=== PATIENT | male | born 1945 | race Hispanic/Latino ===

== ENCOUNTER 2018-01-03 20:18 | Inpatient (IN) | payer MEDICARE ==
[2018-01-03 20:18] VITALS: BMI 33.3
--- NOTE | 2018-01-03 21:10 | ED PDOC ---
Arrival/HPI - General Chief Complaint: Flu-like Symptoms Time Seen by Provider: 01/03/18 20:29 Historian: Patient, Family - History of Present Illness Narrative History of Present Illness (Text): 01/03/18 20:35 Meño Arriaza is a 72 year old male, whose past medical history includes diabetes, who presents to the Emergency department complaining of flu-like symptoms for the past few days. Patient also presented for left-sided weakness/ lower extremity weakness. Patient denies any chest pain, shortness of breath, nausea, vomiting, diarrhea, urinary symptoms, back pain, neck pain, headache, or any other complaints. Symptom Onset: Gradual Symptom Course: Unchanged Activities at Onset: Light Context: Home Past Medical History - Provider Review Nursing Documentation Reviewed: Yes - Infectious Disease Hx of Infectious Diseases: None - Cardiac Hx Pacemaker: No - Neurological Hx Paralysis: No - Endocrine/Metabolic Hx Diabetes Mellitus Type 2: Yes - Hematological/Oncological Hx Blood Transfusions: No - Musculoskeletal/Rheumatological Hx Musculoskeletal Disorders: No - Genitourinary/Gynecological Hx Prostate Problems: Yes - Psychiatric Hx Substance Use: No - Surgical History Other/Comment: right knee sx - Anesthesia Hx Anesthesia: Yes Hx Anesthesia Reactions: No Hx Malignant Hyperthermia: No Family/Social History - Physician Review Nursing Documentation Reviewed: Yes Family/Social History: Unknown Family HX Smoking Status: Never Smoked Hx Alcohol Use: Yes (MILD USE) Hx Substance Use: No Allergies/Home Meds Allergies/Adverse Reactions: Allergies No Known Allergies Allergy (Verified 01/03/18 20:32) Home Medications: Home Meds Medication Instructions Recorded Confirmed Finasteride [Proscar] 5 mg PO DAILY 07/23/17 01/03/18 Glipizide [Glucotrol] 10 mg PO BID 07/23/17 01/03/18 Losartan [Cozaar] 50 mg PO DAILY 07/23/17 01/03/18 MetFORMIN [glucOPHAGE] 1,000 mg PO BID 07/23/17 01/03/18 Pravastatin Sodium [Pravachol] 20 mg PO DAILY 07/23/17 01/03/18 Amoxicillin/Clavulanate [Augmentin 1 tab PO BID 01/05/18 01/05/18 875 MG-125 MG] Review of Systems - Physician Review All systems were reviewed & negative as marked: Yes - Review of Systems Constitutional: Normal. absent: Fevers Eyes: Normal ENT: Other (+flu-like symptoms) Cardiovascular: Normal. absent: Chest Pain Gastrointestinal: Normal. absent: Abdominal Pain, Diarrhea, Nausea, Vomiting Genitourinary Male: Normal. absent: Dysuria, Frequency, Hematuria, Urinary Output Changes Musculoskeletal: Normal. absent: Back Pain, Neck Pain Skin: Normal. absent: Rash Neurological: Other (+left-sided weakness). absent: Dizziness Endocrine: Normal Hemo/Lymphatic: Normal Psychiatric: Normal Physical Exam Vital Signs Reviewed: Yes Vital Signs Temp Pulse Resp BP Pulse Ox 01/04/18 04:07 94 H 17 108/64 98 01/04/18 02:44 92 H 17 112/81 96 01/04/18 01:44 92 H 17 108/60 98 01/04/18 00:44 92 H 17 115/61 98 01/03/18 20:23 100.3 F H 118 H 20 118/73 98 Temperature: Febrile Blood Pressure: Normal Pulse: Regular Respiratory Rate: Normal Appearance: Positive for: Well-Appearing, Non-Toxic, Comfortable Pain Distress: None Mental Status: Positive for: Alert and Oriented X 3 - Systems Exam Head: Present: Atraumatic, Normocephalic Pupils: Present: PERRL Extroacular Muscles: Present: EOMI Conjunctiva: Present: Normal Mouth: Present: Moist Mucous Membranes Neck: Present: Normal Range of Motion Respiratory/Chest: Present: Clear to Auscultation, Good Air Exchange. No: Respiratory Distress, Accessory Muscle Use Cardiovascular: Present: Regular Rate and Rhythm, Normal S1, S2. No: Murmurs Abdomen: Present: Normal Bowel Sounds. No: Tenderness, Distention, Peritoneal Signs Back: Present: Normal Inspection. No: CVA Tenderness, Midline Tenderness, Paraspinal Tenderness Upper Extremity: Present: Normal Inspection, NORMAL PULSES, Neurovascularly Intact, Capillary Refill < 2s. No: Cyanosis, Edema, Tenderness, Swelling, Erythema, Deformity Lower Extremity: Present: Other (4/5 strength in left leg). No: Edema, Tenderness, Swelling, Erythema Neurological: Present: GCS=15, CN II-XII Intact, Speech Normal Skin: Present: Warm, Dry, Normal Color. No: Rashes Psychiatric: Present: Alert, Oriented x 3, Normal Insight, Normal Concentration Medical Decision Making ED Course and Treatment: 01/03/18 20:35 Impression: 72 year old male complaining of flu-like symptoms and left-sided weakness. Plan: -- CT Head w/o contrast -- EKG -- Chest X-ray -- Labs, troponin -- Rapid influenza -- Urinalysis -- Reassess and disposition Progress Notes: Reviewed EKG, sinus tachycardia at [address] LAD. Non-specific ST/T wave changes. 01/03/18 21:52 Chest X-ray reviewed, shows no acute processes. 01/03/18 23:01 CT Head shows: Brain: Mild atrophy. No intracranial hemorrhage. No mass. Minimal decreased attenuation within periventricular white matter. No definite edema. Ventricles: Mildly dilated out of proportion to sulci. Bones/joints: No acute fracture. Soft tissues: Unremarkable. Vasculature: Atherosclerotic disease of intracranial arteries. Sinuses: Near complete opacification of RIGHT maxillary sinus. Moderate mucosal/ minimal fluid thickening of LEFT maxillary sinus. Moderate mucosal thickening of ethmoid sinuses. Mild-tomoderate mucosal thickening +/- fluid of frontal, sphenoid sinuses. Mastoid air cells: No mastoid effusion. Orbits: Unremarkable as visualized. IMPRESSION: 1. Nonspecific white matter changes. Acute infarction may be CT occult within first 24 hours. If a focal deficit persists, consider followup CT or MRI for further evaluation. 2. Mild hydrocephalus vs central atrophy. Compare with prior examinations if available. 3. Sinus disease. 4. Incidental/non-acute findings are described above. 01/04/18 00:[address] Eduardo, covering for Dr. Mckeon, who is aware and agrees with plan. Pt will be admitted to remote telemetry for TIA. - Lab Interpretations Lab Results: 01/03/18 21:11 01/03/18 21:11 Lab Results 01/04/18 00:30: Urine Color Yellow, Urine Appearance Sl cloudy, Urine pH 6.0, Ur Specific [place] >= 1.030, Urine Protein 100 H, Urine Glucose (UA) Negative, Urine Ketones 15 H, Urine Blood Trace-intact H, Urine Nitrate Negative, Urine Bilirubin Small H, Urine Urobilinogen 1.0 H, Ur Leukocyte Esterase Negative, Urine RBC 0 - 2, Urine WBC 0 - 2, Ur Epithelial Cells 1 - 3, Urine Bacteria Few 01/03/18 21:11: Influenza Typ A,B (EIA) Negative for flu a/b 01/03/18 21:11: Sodium 135, Potassium 4.2, Chloride 97 L, Carbon Dioxide 24, Anion Gap 18, BUN 22 H, Creatinine 1.0, Est GFR ( Amer) > 60, Est GFR ( Non-Af Amer) > 60, Random Glucose 263 H, Calcium 9.6, Total Bilirubin 1.2, AST 29, ALT 35, Alkaline Phosphatase 51, Troponin I 0.02, Total Protein 7.6, Albumin 4.1, Globulin 3.5, Albumin/Globulin Ratio 1.2 01/03/18 21:11: WBC 5.6, RBC 5.46, Hgb 15.2, Hct 44.6, MCV 81.7, MCH 27.8, MCHC 34.1, RDW 13.9, Plt Count 126, MPV 10.3, Gran % 74.2 H, Lymph % (Auto) 9.4 L, Haines % (Auto) 16.2 H, Eos % (Auto) 0.0 L, Baso % (Auto) 0.2, Gran # 4.18, Lymph # (Auto) 0.5 L, Haines # (Auto) 0.9 H, Eos # (Auto) 0.0, Baso # (Auto) 0.01 I have reviewed the lab results: Yes - RAD Interpretation Radiology Orders: 01/03/18 20:38 CHEST PORTABLE [RAD] Stat 01/03/18 20:48 HEAD W/O CONTRAST [CT] Stat Bottom Scrubber: ED Physician, Radiologist - EKG Interpretation Interpreted by ED Physician: Yes Type: 12 lead EKG - Medication Orders Current Medication Orders: Acetaminophen (Tylenol 325mg Tab) 650 mg PO Q4H PRN PRN Reason: Fever >100.5 F Amoxicillin/Clavulanate Potassium (Augmentin 500 Mg-125 Mg Tab) 1 tab PO Q8 MARG[facility]ET PRN Reason: Protocol Last Admin: 01/05/18 13:28 Dose: 1 tab Aspirin (Ecotrin) 81 mg PO DAILY [facility] Last Admin: 01/05/18 13:30 Dose: 81 mg Atorvastatin Calcium (Lipitor) 10 mg PO DIN [facility] Last Admin: 01/04/18 17:36 Dose: 10 mg Finasteride (Proscar) 5 mg PO DAILY [facility] Last Admin: 01/05/18 10:30 Dose: 5 mg Insulin Human Regular (Humulin R Low) 0 units SC ACHS [facility] PRN Reason: Protocol Last Admin: 01/05/18 13:33 Dose: Not Given Non-Admin Reason: Patient Refused Losartan Potassium (Cozaar) 50 mg PO DAILY [facility] Last Admin: 01/05/18 10:30 Dose: 50 mg MAR Pulse and Blood Pressure Document 01/05/18 10:30 CD (Rec: 01/05/18 10:31 CD [id number]) Pulse Pulse Rate (60-90) 71 Blood Pressure Blood Pressure (100/60-150/90) 131/71 Metformin HCl (Glucophage) 1,000 mg PO BID [facility] Last Admin: 01/05/18 10:30 Dose: 1,000 mg Discontinued Medications Aspirin (Ecotrin) 325 mg PO STAT STA Stop: 01/04/18 00:42 Last Admin: 01/04/18 01:15 Dose: 325 mg Sodium Chloride (Sodium Chloride 0.9%) 1,000 mls @ 100 mls/hr IV .Q10H STA Stop: 01/04/18 11:01 Last Admin: 01/04/18 01:15 Dose: 100 mls/hr eMAR Start Stop Document 01/04/18 01:15 IT (Rec: 01/04/18 01:15 IT [id number]) Intravenous Solution Start Date 01/04/18 Start Time 01:15 Oseltamivir Phosphate (Tamiflu Cap) 75 mg PO STAT STA PRN Reason: Protocol Stop: 01/04/18 00:32 Last Admin: 01/04/18 01:15 Dose: 75 mg NIHSS Scale (Leslie) Time Performed: 20:35 - How Severe is the Stoke Baseline Level of Consciousness: 0=Alert LOC to Questions: 0=Both comments correct LOC to commands: 0=Obeys both correctly Best Gaze: 0=Normal Visual: 0=No visual loss Facial: 0=Normal Motor Arm - Left: 0=No drift Motor Arm - Right: 0=No drift Motor Leg - Left: 1=Drift before 5 sec Motor Leg - Right: 0=No drift Limb Ataxia: 0=Absent Sensory: 0=Normal Best Language: 0=No aphasia Dysarthia: 0=Normal articulation Extinction & Inattention (Neglect): 0=Normal, no object Score: 1 Risk Level: Minor Stroke Risk rTPA Inclusion/Exclusion - Refusal of Treatment Patient Refused Treatment: No - Inclusion Criteria for Altepase Patient is 18 years or Older: Yes The Clinical Diagnosis of Ischemic Stroke That is Causing a Potentially Disabling Neurological Deficit: No Time of Onset is Well Established to be Less Than 270 Minute Before Treatment Would Begin: No Risk/Benefit Discussed With Patient/Family Member Present: Yes - Exclusion Criteria for Altepase Uncontrolled Hypertension at Time of Treatment (Systolic BP above 185 or Diastolic BP above 110 mmHg): No Active Internal Bleeding: No Known Bleeding Diathesis Including but Not Limited to: Platelets Below 100,000/ mm,PTT Above 40 sec After Heparin Use, Current Use of Oral Anitcoagulant With INR Greater Than 1.7 or PT Greater Than 15 secs: No Evidence of an Intracranial Hemorrhage: No Evidence of Major Acute Infarct With Signs Greater Than 1/3 MCA Territory: No Suspicion of Subarachnoid Hemorrhage on Pretreatment Evaluation Even if CT Head Negative For Hemorrhage: No - Scribe Statement The provider has reviewed the documentation as recorded by the Felicianoibjosé Rodgers All medical record entries made by the Felicianoibjosé were at my direction and personally dictated by me. I have reviewed the chart and agree that the record accurately reflects my personal performance of the history, physical exam, medical decision making, and the department course for this patient. I have also personally directed, reviewed, and agree with the discharge instructions and disposition. Disposition/Present on Arrival - Present on Arrival Any Indicators Present on Arrival: No History of DVT/PE: No History of Uncontrolled Diabetes: Yes Urinary Catheter: No History of Decub. Ulcer: No History Surgical Site Infection Following: None - Disposition Have Diagnosis and Disposition been Completed?: Yes Diagnosis: TIA (transient ischemic attack) Disposition: HOSPITALIZED Disposition Time: 00:00 Patient Problems: Current Active Problems Problem Status Onset TIA (transient ischemic attack) Acute Condition: FAIR
[2018-01-03 21:25] LABS: BASO # 0.01 K/mm3 (0.0-2.0); BASO % 0.2 % (0.0-3.0); GRAN # 4.18 (1.4-6.5); GRAN % 74.2 % (50.0-68.0); HEMOGLOBIN 15.2 g/dL (14.0-18.0); LYMPH # 0.5 (1.2-3.4); LYMPH % 9.4 % (22.0-35.0); MEAN CELL VOLUME 81.7 fl (80.0-105.0); MEAN CORPUSCULAR HEMOGLOBIN 27.8 pg (25.0-35.0); MEAN CORPUSCULAR HGB CONC 34.1 g/dl (31.0-37.0); MEAN PLATELET VOLUME 10.3 fl (7.0-11.0); MONO # 0.9 (0.1-0.6); MONO % 16.2 % (1.0-6.0); RBC 5.46 10^6/uL (3.5-6.1); RED CELL DISTRIBUTION WIDTH 13.9 % (11.5-14.5); WHITE BLOOD COUNT 5.6 10^3/ul (4.5-11.0)
[2018-01-03 21:55] LABS: ALB/GLOB RATIO 1.2 (1.1-1.8); ALBUMIN 4.1 g/dL (3.0-4.8); ALT/SGPT 35 U/L (7-56); AST/SGOT 29 U/L (17-59); BLOOD UREA NITROGEN 22 mg/dL (7-21); CALCIUM 9.6 mg/dL (8.4-10.5); GFR AFRICAN-AMERICAN > 60; GFR NON-AFRICAN AMERICAN > 60
[2018-01-03 22:06] LABS: TROPONIN I 0.02 ng/mL
--- NOTE | 2018-01-03 23:00 | CT ---
EXAM: CT Head Without Intravenous Contrast CLINICAL HISTORY: 72 years old, male; Signs and symptoms; Weakness, extremity TECHNIQUE: Axial computed tomography images of the head/brain without intravenous contrast. All CT scans at this facility use one or more dose reduction techniques, viz.: automated exposure control; ma/kV adjustment per patient size (including targeted exams where dose is matched to indication; i.e. head); or iterative reconstruction technique. Coronal and sagittal reformatted images were created and reviewed. COMPARISON: No relevant prior studies available. FINDINGS: Brain: Mild atrophy. No intracranial hemorrhage. No mass. Minimal decreased attenuation within periventricular white matter. No definite edema. Ventricles: Mildly dilated out of proportion to sulci. Bones/joints: No acute fracture. Soft tissues: Unremarkable. Vasculature: Atherosclerotic disease of intracranial arteries. Sinuses: Near complete opacification of RIGHT maxillary sinus. Moderate mucosal/minimal fluid thickening of LEFT maxillary sinus. Moderate mucosal thickening of ethmoid sinuses. [id number] mucosal thickening +/- fluid of frontal, sphenoid sinuses. Mastoid air cells: No mastoid effusion. Orbits: Unremarkable as visualized. IMPRESSION: 1. Nonspecific white matter changes. Acute infarction may be CT occult within first 24 hours. If a focal deficit persists, consider followup CT or MRI for further evaluation. 2. Mild hydrocephalus vs central atrophy. Compare with prior examinations if available. 3. Sinus disease. 4. Incidental/non-acute findings are described above.
[2018-01-04] MEDS ORDERED: Aspirin 325 mg EC Tablets PO STA (00:41)
[2018-01-04 00:51] LABS: URINE BILIRUBIN SMALL (NEGATIVE); URINE BLOOD TRACE-INTACT (NEGATIVE); URINE GLUCOSE (UA) NEGATIVE (NEGATIVE); URINE LEUKOCYTE ESTERASE NEGATIVE Leu/uL (NEGATIVE); URINE NITRATE NEGATIVE (NEGATIVE); URINE PROTEIN 100 mg/dL (<30 mg/dL)
[2018-01-04] MEDS ORDERED: Sodium Chloride 0.9% 1,000 ML IV STA (01:02)
[2018-01-04 01:10] LABS: URINE APPEARANCE SL CLOUDY (CLEAR); URINE COLOR YELLOW (YELLOW)
[2018-01-04 02:02] LABS: URINE RBC 0 - 2 /hpf (0-2)
[2018-01-04 02:03] LABS: URINE BACTERIA FEW (NEG); URINE WBC 0 - 2 /hpf (0-6)
[2018-01-04] MEDS: Insulin Reg-LOW-Coverage SC SCH ×4 (08:43→21:59)
[2018-01-04 08:48] LABS: HDL CHOLESTEROL 24 mg/dL (29-60)
--- NOTE | 2018-01-04 08:56 | RAD ---
HISTORY: weak COMPARISON: No prior. FINDINGS: LUNGS: No active pulmonary disease. PLEURA: No significant pleural effusion identified, no pneumothorax apparent. CARDIOVASCULAR: Normal. OSSEOUS STRUCTURES: No significant abnormalities. VISUALIZED UPPER ABDOMEN: Normal. OTHER FINDINGS: None. IMPRESSION: No active disease.
[2018-01-04 08:59] LABS: LDL CHOLESTEROL 72 mg/dL (0-129)
--- NOTE | 2018-01-04 11:48 | CARD ---
APPROVED REPORT EKG Measurement Heart [id number] <Conclusion> Sinus tachycardia Possible Left atrial enlargement Left axis deviation Abnormal ECG
[2018-01-04] MEDS ORDERED: Gadodiamide 287 MG/ML VIAL (15ML) IV ONE (16:31)
--- NOTE | 2018-01-04 17:14 | HP ---
HISTORY OF PRESENT ILLNESS: Mr. Arriaza is a 72-year-old male presented to the ED with progressive weakness over past few days. He was not able to get up from the sitting position. Denies any fever. No chest pain. No nausea. No vomiting. No diarrhea. He also noticed that while he is looking in the mirror, his image is tilted to the left. No seizure. No altered sensorium. He has history of diabetes mellitus, fairly controlled with current medications; also has benign prostatic hypertrophy, no active issues right now. He never smoked. PAST MEDICAL HISTORY: Diabetes mellitus type 2, BPH. PAST SURGICAL HISTORY: Right knee surgery. PERSONAL HISTORY: Never smoked. No history of alcohol abuse. SOCIAL HISTORY: Lives at home. FAMILY HISTORY: Noncontributory. ALLERGIES: NO KNOWN DRUG ALLERGIES. HOME MEDICATIONS: Proscar 5 mg daily, Glucotrol 10 mg b.i.d., Cozaar 50 mg daily, metformin 1000 mg p.o. b.i.d., Pravachol 20 mg daily. REVIEW OF SYSTEMS: As per HPI. Rest of 12-point review of systems reviewed negative. PHYSICAL EXAMINATION: GENERAL: Comfortable in bed, not in any acute distress. VITAL SIGNS: T-max is 100.3, heart rate is 118 per minute, respiratory rate 20 per minute, blood pressure 118/70, pulse ox is 98% on room air. HEENT: Normal. NECK: No lymphadenopathy. CHEST: Air entry present and equal bilaterally. No added sound. CARDIOVASCULAR: S1 and S2 normal. No murmur. No gallop. ABDOMEN: Soft, nontender. No hepatosplenomegaly. EXTREMITIES: No edema. CIVIL ENGINEERING MANAGER: Alert and oriented x3. No focal sensory motor deficit. SPINE: Nontender. SKIN: No petechiae. No rash. CAT scan of the head without contrast showed focal white matter changes, nonspecific in nature. Also had opacification of right maxillary sinus and sinus thickening. LABORATORY DATA: White count 5.6, hemoglobin 15.2, hematocrit 44.6, platelet count 126. Sodium 135, potassium 4.2, BUN 22, creatinine 1, glucose 263. UA negative. Granulocytes 74%, elevated; monocyte elevated 16.2. ASSESSMENT: 1. Transient ischemic attack. 2. Granulocytosis, monocytosis. 3. Benign prostatic hypertrophy. PLAN: He will be admitted to tele monitoring. Neurology consultation, Dr. Oliver requested. We will continue antidiabetic metformin 1000 mg p.o. b.i.d. Continue Cozaar 50 mg daily, Lipitor 10 mg daily, Proscar 5 mg daily. Carotid and vertebral Doppler ordered. MRI of the brain ordered. We will continue to follow closely. Carbohydrate consistent diet. Janneth Eduardo MD
[2018-01-04] MEDS: Amoxicillin-Clav 500-125 mg Tab PO SCH ×2 (17:36→21:59)
[2018-01-04 18:45] VITALS: RESP 20
--- NOTE | 2018-01-04 20:00 | MRI ---
EXAM: MR Head Without and With Intravenous Contrast EXAM DATE/TIME: 01/04/2018 2:10 PM CLINICAL HISTORY: 72 years old, male; Signs and symptoms; Weakness, extremity; Bilateral; Additional info: TIA TECHNIQUE: Magnetic resonance images of the head/brain without and with intravenous contrast in multiple planes. CONTRAST: 15 mL of optimark administered intravenously. COMPARISON: Prior head CT of 2018-01-03 FINDINGS: LIMITATIONS: Mild streak/motion artifact. BRAIN: Best seen on image 27 of series 5, there is a round 2 cm mass at the vertex/top of the brain on the right, which demonstrates intermediate T1 and high T2 signal. It enhances solidly postcontrast. It appears extra-axial in location. On the recent CT, it causes smooth thinning of the inner table of the skull. This could represent a small meningioma. Mild increased T2 signal in the periventricular white matter bilaterally, nonspecific in appearance, but most likely representing mild chronic small vessel ischemic changes, in a patient of this age. No significant acute abnormality identified. No evidence of restricted diffusion/acute infarct. No signal abnormality seen to suggest acute intracranial hemorrhage. No acute extra-axial fluid collections visualized. No evidence of significant mass effect within the brain. VENTRICLES: No evidence of significant hydrocephalus. BONES/JOINTS: No acute bony abnormality identified. SINUSES: Pansinus inflammatory disease. There is fluid in the sphenoid sinuses bilaterally, compatible with acute sinusitis, as well as near-complete opacification of the right maxillary and bilateral ethmoid sinuses. MASTOID AIR CELLS: Mastoid air cells appear clear. ORBITS: No acute intraorbital abnormality seen. IMPRESSION: - No evidence of acute infarct or other significant acute intracranial abnormality. - Findings which are most likely due to a small 2 cm meningioma at the vertex/top of the head on the right. - Pansinus inflammatory disease, including acute sphenoid sinusitis. - See above for remaining findings.
--- NOTE | 2018-01-05 03:22 | CON ---
DATE: HISTORY OF PRESENT ILLNESS: This is a 72-year-old male with past medical history of diabetes, who was complaining of flu-like symptoms, family at bedside, presented with left-sided weakness. No shortness of breath, no chest pain. Symptoms improved. I was called to evaluate the patient. PAST MEDICAL HISTORY: Diabetes. ALLERGIES: NO KNOWN DRUG ALLERGIES. HOME MEDICATIONS: Glucotrol, Cozaar, Glucophage, and Pravachol. PHYSICAL EXAMINATION: VITAL SIGNS: Blood pressure 118/73. HEENT: Normocephalic, atraumatic. NECK: Supple. NEUROLOGIC: Awake, oriented to self and place. Cranial nerves II through XII were tested. Pupils are reactive. EOM intact. Visual wheatley full. No facial asymmetry. Tongue midline. Motor: Moves all the extremities equally. Tone normal. Deep tendon reflexes are 1+. Both plantars are downgoing. Sensory appears intact. Cerebellar, gait deferred. IMPRESSION AND PLAN: Possibly transient ischemic attack. Symptoms improving. We will do the MRI of the head and carotid Doppler. Continue present management. We will follow up. Edwin Oliver MD
[2018-01-05] MEDS: Amoxicillin-Clav 500-125 mg Tab PO SCH ×2 (05:19→13:28)
[2018-01-05 05:49] VITALS: O2SAT 97
[2018-01-05] MEDS: Insulin Reg-LOW-Coverage SC SCH ×3 (08:48→16:40)
--- NOTE | 2018-01-05 11:37 | CP.PCM.PN ---
<GianaKandace - Last Filed: 01/05/18 11:42> Subjective - Date & Time of Evaluation Date of Evaluation: 01/05/18 Time of Evaluation: 11:32 - Subjective Subjective: Neurology PGY-[address] Oliver Pt states that leg and arm weakness has improved. He is seem OOB to chair with a friend. No acute complaints Objective - Vital Signs/Intake and Output Vital Signs (last 24 hours): Temp Pulse Resp BP Pulse Ox 98.8 F 71 20 131/71 97 01/05/18 05:48 01/05/18 10:30 01/05/18 05:48 01/05/18 10:30 01/05/18 05:48 Intake and Output: 01/05/18 01/05/18 06:59 18:59 Intake Total 420 Balance 420 - Medications Medications: Current Medications Acetaminophen (Tylenol 325mg Tab) 650 mg PO Q4H PRN PRN Reason: Fever >100.5 F Amoxicillin/Clavulanate Potassium (Augmentin 500 Mg-125 Mg Tab) 1 tab PO Q8 [facility] PRN Reason: Protocol Last Admin: 01/05/18 05:19 Dose: 1 tab Atorvastatin Calcium (Lipitor) 10 mg PO DIN [facility] Last Admin: 01/04/18 17:36 Dose: 10 mg Finasteride (Proscar) 5 mg PO DAILY [facility] Last Admin: 01/05/18 10:30 Dose: 5 mg Insulin Human Regular (Humulin R Low) 0 units SC ACHS [facility] PRN Reason: Protocol Last Admin: 01/05/18 08:48 Dose: Not Given Losartan Potassium (Cozaar) 50 mg PO DAILY [facility] Last Admin: 01/05/18 10:30 Dose: 50 mg Metformin HCl (Glucophage) 1,000 mg PO BID [facility] Last Admin: 01/05/18 10:30 Dose: 1,000 mg - Constitutional Appears: Well - Head Exam Head Exam: ATRAUMATIC, NORMAL INSPECTION, NORMOCEPHALIC - Eye Exam Eye Exam: EOMI, Normal appearance, PERRL Pupil Exam: NORMAL ACCOMODATION - ENT Exam ENT Exam: Mucous Membranes Moist - Neck Exam Additional comments: supple - Respiratory Exam Respiratory Exam: Clear to Ausculation Bilateral, NORMAL BREATHING PATTERN - Cardiovascular Exam Cardiovascular Exam: REGULAR RHYTHM, +S1, +S2. absent: Murmur - GI/Abdominal Exam GI & Abdominal Exam: Soft. absent: Tenderness - Extremities Exam Extremities Exam: absent: Calf Tenderness, Pedal Edema - Neurological Exam Neurological Exam: Alert, Awake, CN II-XII Intact, Oriented x3 Additional comments: AAOx3 CN2-12: intact. Visual wheatley full Speech: slurring has much resolved Motor: 5/5 all 4 extremities Sensory: intact DTR: 1+, plantars are downgoing - Psychiatric Exam Psychiatric exam: Normal Affect, Normal Mood - Skin Skin Exam: Dry, Warm Assessment and Plan - Assessment and Plan (Free Text) Plan: Mr Meño Arriaza, 72M, with PMHx if Diabetes, complained of flu-like symptoms and left sided weakness. Tranisent L sided weakness, possibly due to mild transient ischemic attack Incidental finding of meningioma - MRI: no acute infarct. 2cm meningioma R vertex - ___Pending__carotid doppler - asa 81, lipitor 10 - Continue PT/OT - pt is neurologically stable to discharge from hospital - follow up with neurology outpatient to monitor meningioma s/r/d/w Dr Oliver <James Oliver - Last Filed: 01/05/18 11:47> Objective - Vital Signs/Intake and Output Vital Signs (last 24 hours): Temp Pulse Resp BP Pulse Ox 98.8 F 71 20 131/71 97 01/05/18 05:48 01/05/18 10:30 01/05/18 05:48 01/05/18 10:30 01/05/18 05:48 Intake and Output: 01/05/18 01/05/18 06:59 18:59 Intake Total 420 Balance 420 - Medications Medications: Current Medications Acetaminophen (Tylenol 325mg Tab) 650 mg PO Q4H PRN PRN Reason: Fever >100.5 F Amoxicillin/Clavulanate Potassium (Augmentin 500 Mg-125 Mg Tab) 1 tab PO Q8 [facility] PRN Reason: Protocol Last Admin: 01/05/18 05:19 Dose: 1 tab Aspirin (Ecotrin) 81 mg PO DAILY [facility] Atorvastatin Calcium (Lipitor) 10 mg PO DIN [facility] Last Admin: 01/04/18 17:36 Dose: 10 mg Finasteride (Proscar) 5 mg PO DAILY [facility] Last Admin: 01/05/18 10:30 Dose: 5 mg Insulin Human Regular (Humulin R Low) 0 units SC ACHS [facility] PRN Reason: Protocol Last Admin: 01/05/18 08:48 Dose: Not Given Losartan Potassium (Cozaar) 50 mg PO DAILY [facility] Last Admin: 01/05/18 10:30 Dose: 50 mg Metformin HCl (Glucophage) 1,000 mg PO BID [facility] Last Admin: 01/05/18 10:30 Dose: 1,000 mg
[2018-01-05 12:48] VITALS: BP 135/81; TEMP 98.4
[2018-01-05] MEDS ORDERED: Influenza Vaccine 60 mcg/0.5 mL SYR (4YR UP) IM ONE (17:09)
[2018-01-05 18:21] VITALS: PULSE 87
--- NOTE | 2018-01-06 04:28 | DS ---
HISTORY OF PRESENT ILLNESS: This is a 72-year-old male who was coming to the hospital because of weakness. He says he had difficulty in ambulating. The patient was seen by Neurology. They were concerned about a TIA. The patient had a brain MRI that was done and showed no evidence of acute infarct. There are 2 small meningiomas at the vertex. The patient has no complaints of any headaches or dizziness. No nausea or vomiting. He says he is stronger, and is able to ambulate. PHYSICAL EXAMINATION: VITAL SIGNS: Temperature is 98.8, pulse of 71, blood pressure is 131/71, respiration is 20. GENERAL: The patient is lying in bed, flat, comfortable. HEENT: No oral lesion. Anicteric sclerae. Moist mucosa. NECK: No JVD, adenopathy, or thyromegaly. CARDIOVASCULAR: S1 and S2, regular. No murmurs, rubs, or gallops. LUNGS: Clear to auscultation bilaterally. No wheeze, rales, or rhonchi. ABDOMEN: Bowel sounds are positive, soft, nontender and nondistended. EXTREMITIES: no cyanosis, clubbing or edema. LABORATORY DATA: Influenza is negative. ASSESSMENT: 1. Viral syndrome. 2. Benign prostatic hypertrophy. 3. Diabetes type 2. PLAN: The patient is currently comfortable, is receiving losartan for hypertension. The patient was given IV fluids. The patient is on Lipitor for dyslipidemia. He is on Proscar. There is a carotid and a vertebral Doppler that is pending. I do not see any signs of active bacterial infection. The patient's flu is negative. He denies any fevers. He did have a low-grade temperature of 100.3 on admission. The patient is going to continue with carbohydrate consistent diet. CONDITION: Stable. ACTIVITY: Increase as tolerated. I do not think pt has a TIA according to the pt symptoms. He has an infection and responded to antibiotics. Will continue with Abx. Spoke to and pt prior to discharge and will f/u with Dr Sharif. Jose Mckeon MD DENYS
--- NOTE | 2018-01-06 16:09 | US ---
PROCEDURE: Bilateral carotid artery duplex ultrasound HISTORY: Carotid stenosis TIA PHYSICIAN(S): Christiano Villagomez MD. TECHNIQUE: Duplex sonography and color-flow Doppler were used to evaluate the carotid bifurcations and limited segments of the vertebral arteries bilaterally. FINDINGS: There is mild to moderate smooth heterogeneous plaque noted at the carotid bifurcations bilaterally. The peak systolic velocity in the proximal right internal carotid artery is 71 cm/sec. This corresponds to a 20 to 39% proximal right ICA stenosis. Mildly elevated systolic velocities are noted in the proximal right external carotid artery. There is antegrade flow in the small right vertebral artery. The peak systolic velocity in the proximal left internal carotid artery is 88 cm/sec. This corresponds to a 20 to 39% proximal left ICA stenosis. Normal systolic velocities are noted in the proximal left external carotid artery. There is antegrade flow in the dominant left vertebral artery. IMPRESSION: 1. Bilateral 20-39% proximal ICA stenoses. 2. Antegrade flow in both vertebral arteries.
== END 2018-01-05 19:14 | disposition home or self-care (01) | DRG 866 ==
LOC: ED 20:18 → ERH 01-04 00:34 → 3RSO 01-04 03:50
PROVIDERS: ADMIT Internal Medicine Nephrology; ATTEND Internal Medicine Nephrology
DX: B34.9 Viral infection, unspecified (principal); E11.9 Type 2 diabetes mellitus without complications; N40.0 Benign prostatic hyperplasia without lower urinary tract symptoms; D32.9 Benign neoplasm of meninges, unspecified; E78.5 Hyperlipidemia, unspecified; Z79.84 Long term (current) use of oral hypoglycemic drugs